=== PATIENT | female | born 2000 | race African-American/Black ===

== ENCOUNTER 2024-03-09 01:51 | Inpatient (IN) | payer OTHER ==
[~2024-03-09] VITALS: Ht 162.6 cm; Wt 106.1 kg
[2024-03-09 02:42] LABS: AMNISURE ROM TEST POSITIVE
[2024-03-09] MEDS ORDERED: ondansetron HCL 4 MG/2 ML VIAL IV PRN (03:15)
[2024-03-09] MEDS ORDERED: LACTATED RINGER'S 1,000 ML IV PRN (03:15)
[2024-03-09] MEDS ORDERED: CALCIUM CARBONATE 500 MG CHEW PO PRN ×2 (03:15→17:00)
[2024-03-09] MEDS ORDERED: OXYTOCIN/DEXTROSE 5% 20 UNITS/100 ML BAG IV SCH (03:15)
[2024-03-09] MEDS ORDERED: MAGNESIUM HYDROXIDE/AL HYDROX 30 ML CUP PO PRN ×2 (03:15→17:00)
[2024-03-09] MEDS ORDERED: LACTATED RINGER'S 1,000 ML IV SCH (03:30)
[2024-03-09 03:35] LABS: HEMATOCRIT 41.1 % (35.0-50.0); HEMOGLOBIN 13.3 g/dL (12.0-18.0); MCH 27.9 (27-36); MCHC 32.3 g/dl (30-36); MCV 86.2 fl (81-99); RBC 4.77 M/ul (4.3-5.7); RDW 14.6 (10.5-15.0)
[2024-03-09 04:03] LABS: ABO A; ANTIBODY SCREEN NEGATIVE; RH POSITIVE
[2024-03-09] MEDS ORDERED: ROPIVACAINE 0.2% 200 ML BAG ONE (05:15)
[2024-03-09 06:51] LABS: AMPHETAMINES, URINE NEGATIVE (NEGATIVE); BARBITURATES, URINE NEGATIVE (NEGATIVE); BENZODIAZEPINE, URINE NEGATIVE (NEGATIVE); BUPRENORPHINE, URINE NEGATIVE (NEGATIVE); CANNABINOID, URINE NEGATIVE (NEGATIVE); COCAINE, URINE NEGATIVE (NEGATIVE); ECSTASY, URINE NEGATIVE (NEGATIVE); FENTANYL, URINE NEGATIVE (NEGATIVE); METHADONE, URINE NEGATIVE (NEGATIVE); OPIATES, URINE NEGATIVE (NEGATIVE); OXYCODONE, URINE NEGATIVE (NEGATIVE); PHENCYCLIDINE, URINE NEGATIVE (NEGATIVE)
[2024-03-09] MEDS ORDERED: LACTATED RINGER'S 500 ML IV PRN (07:15)
[2024-03-09] MEDS ORDERED: ROPIVACAINE 0.2% 200 ML BAG EPIDURAL SCH (07:15)
[2024-03-09] MEDS ORDERED: LACTATED RINGER'S 2,000 ML IV ONE (07:15)
[2024-03-09] MEDS ORDERED: ePHEDrine sulfate 5 MG/ML SYRINGE IV PRN (07:15)
[2024-03-09] MEDS ORDERED: OXYTOCIN/0.9 % SODIUM CHLORIDE 500 ML IV ONE (08:00)
[2024-03-09] MEDS ORDERED: OXYTOCIN/0.9 % SODIUM CHLORIDE 500 ML IV SCH (09:15)
[2024-03-09] MEDS ORDERED: LIDOCAINE 2% VISCOUS 6 ML SYR TOP ONE ×2 (17:00)
[2024-03-09] MEDS ORDERED: HYDROCORTISONE ACETATE 25 MG SUPP PR PRN (17:00)
[2024-03-09] MEDS ORDERED: MAGNESIUM HYDROXIDE 30 ML UDC PO PRN (17:00)
[2024-03-09] MEDS ORDERED: WITCH HAZEL/GLYCERIN 1 EA PAD TOP PRN (17:00)
[2024-03-09] MEDS ORDERED: BENZOCAINE 60 ML AEROSOL TOP PRN (17:00)
[2024-03-09] MEDS ORDERED: ACETAMINOPHEN 325 MG TAB PO PRN (17:00)
[2024-03-09] MEDS ORDERED: IBUPROFEN 600 MG TAB PO PRN (17:00)
[2024-03-09] MEDS ORDERED: SENNOSIDES/DOCUSATE 1 EA TAB PO SCH (21:00)
[2024-03-10 05:43] LABS: HEMATOCRIT 31.6 % (35.0-50.0); HEMOGLOBIN 10.6 g/dL (12.0-18.0); MCH 28.4 (27-36); MCHC 33.7 g/dl (30-36); MCV 84.1 fl (81-99); RBC 3.75 M/ul (4.3-5.7); RDW 14.3 (10.5-15.0)
[2024-03-11 05:46] LABS: BASOPHILS 0.4 % (0-2); EOSINOPHILS 0.5 % (0-6); HEMATOCRIT 33.4 % (35.0-50.0); HEMOGLOBIN 10.9 g/dL (12.0-18.0); MCHC 32.6 g/dl (30-36); MCV 85.9 fl (81-99); MONOCYTES 5.9 % (0-12); NEUTROPHILS 69.2 % (39-80); PLATELET COUNT 241 K/uL (140-440); RBC 3.88 M/ul (4.3-5.7); RDW 14.8 (10.5-15.0)
[2024-03-11 05:57] VITALS: BP 120/61
== END 2024-03-11 15:20 | disposition home or self-care (01) | DRG 807 ==
LOC: FBCO 01:51 → FBC 02:34
PROVIDERS: ADMIT Obstetrics & Gynecology; ATTEND Obstetrics & Gynecology
PROC: 10E0XZZ Delivery of Products of Conception, External Approach (ICD-10-PCS; principal; 2024-03-09)
DX: O42.02 Full-term premature rupture of membranes, onset of labor within 24 hours of rupture (principal); Z37.0 Single live birth; Z3A.39 39 weeks gestation of pregnancy
CPT/HCPCS: 01960; 36415; 80307; 84112; 85025; 85027; 86850; 86900; 86901; A9270; J7121